=== PATIENT | female | born 1970 | race Caucasian/White ===

== ENCOUNTER 2018-12-26 01:35 | Emergency (ER) | payer BC, SELFPAY ==
[2018-12-26] MEDS ORDERED: Lidocaine 1% (PF) 30 ML VIAL ONE (01:53)
[2018-12-26] MEDS ORDERED: Triple Antibiotic Oint 1 GM Packet ONE (02:24)
== END 2018-12-26 02:25 | disposition home or self-care (01) ==
LOC: NAV ERS 01:35
DX: S01.311A Laceration without foreign body of right ear, initial encounter (principal); E03.9 Hypothyroidism, unspecified; Z79.899 Other long term (current) drug therapy; W18.11XA Fall from or off toilet without subsequent striking against object, initial encounter
CPT/HCPCS: 12011; J2001

== ENCOUNTER 2020-12-02 13:52 | Emergency (ER) | payer BC ==
[2020-12-03 18:17] LABS: SARS-CoV-2 PCR by NAA DETECTED (NotDetected)
== END 2020-12-02 14:31 | disposition home or self-care (01) ==
LOC: NAV ERS 13:52
DX: U07.1 COVID-19 (principal); E03.9 Hypothyroidism, unspecified; Z79.899 Other long term (current) drug therapy
CPT/HCPCS: 87635; 99283; U0003; U0005

== ENCOUNTER 2022-09-26 03:00 | Emergency (ER) | payer OTHER ==
[2022-09-26] MEDS ORDERED: Prochlorperazine 10 MG/2 ML VIAL ONE (03:44)
[2022-09-26] MEDS ORDERED: diphenhydrAMINE 50 MG/ML VIAL ONE (03:44)
[2022-09-26] MEDS ORDERED: Ketorolac Tromethamine 30 MG/ML VIAL ONE (03:44)
[2022-09-26] MEDS ORDERED: Sodium Chloride 0.9% 1,000 ML ONE (03:44)
== END 2022-09-26 05:59 | disposition home or self-care (01) ==
LOC: NAV ERS 03:00
DX: R51.9 Headache, unspecified (principal); E03.9 Hypothyroidism, unspecified; Z79.899 Other long term (current) drug therapy; Z20.822 Contact with and (suspected) exposure to COVID-19
CPT/HCPCS: 87804; 94760; 96365; 96375; J0780; J1200; J1885; J7050; U0003; U0005

== ENCOUNTER 2022-09-27 13:41 | Emergency (ER) | payer OTHER ==
[2022-09-27 14:48] LABS: Bilirubin Negative (Negative); Blood, Urine Negative (Negative); Clarity Clear (Clear); Glucose, Urine (Dipstick) Negative (Negative); Ketone, Urine 15 mg/dL (Negative); Leukocyte Negative (Negative); Nitrite Negative (Negative); Protein, Urine (Dipstick) Negative (Neg-Trace); Urobilinogen 0.2 mg/dL (Less than 2)
[2022-09-27 14:49] LABS: Pregnancy Test - Urine (BHCG) Negative (Negative); Pregu Control Background? CLEAR/WHITE (CLR/WHITE); Pregu Control Bar Appear? YES (CONTROL BAR)
[2022-09-27] MEDS ORDERED: Ketorolac Tromethamine 30 MG/ML VIAL ONE (15:13)
[2022-09-27 15:29] LABS: #Basophils 0.1 thou/uL (0.0-0.2); #Eosinphils 0.1 thou/uL (0.0-0.7); #Monocytes 0.5 thou/uL (0.11-0.59); #Neutrophils 6.1 thou/uL (1.40-6.50); %Basophils 0.9 % (0.0-1.0); %Eosinophils 0.7 % (0.0-10.0); %Lymphocytes 22.6 % (21.0-51.0); %Monocytes 5.2 % (0.0-10.0); %Neutrophils 70.7 % (42.0-75.0); Hemoglobin 13.1 g/dL (12.0-16.0); Mean Corpuscular HGB CONC 35.1 g/dL (32.0-36.0); Mean Corpuscular Volume 96.7 fl (78.0-98.0); Mean Platelet Volume 6.5 fL (7.4-10.4); Platelet Count 365 10x3/uL (130-400); RBC Distribution Width 10.5 % (11.5-14.5); Red Blood Cell (RBC) Count 3.85 mill/uL (4.20-5.40); White Blood Cell (WBC) Count 8.7 10x3/uL (4.8-10.8)
[2022-09-27 15:43] LABS: ALT (SGPT) 30 U/L (8-55); AST (SGOT) 23 U/L (5-34); Albumin 4.5 g/dL (3.5-5.0); Alkaline Phosphatase 82 U/L (40-110); Anion Gap 14 mmol/L (10-20); BUN (Urea Nitrogen) 8 mg/dL (7.0-18.7); Bilirubin, Total 0.4 mg/dL (0.2-1.2); Calc. Creatinine Clearance 0 mL/min (70-130); Calcium 9.3 mg/dL (7.8-10.44); Carbon Dioxide 22 mmol/L (22-29); Chloride 103 mmol/L (98-107); Estimated GFR 100; Globulin 2.6 g/dL (2.4-3.5); Glucose 97 mg/dL (70-105); Lipase 35 U/L (8-78); Potassium 3.8 mmol/L (3.5-5.1); Protein, Total 7.1 g/dL (6.0-8.3); Sodium 135 mmol/L (136-145)
== END 2022-09-27 17:00 | disposition home or self-care (01) ==
LOC: NAV ERS 13:41
DX: B34.9 Viral infection, unspecified (principal); E03.9 Hypothyroidism, unspecified; Z79.899 Other long term (current) drug therapy
CPT/HCPCS: 70496; 71046; 80053; 81003; 81025; 83690; 84443; 84484; 85025; 96374; J1885